=== PATIENT | male | born 1960 | race Caucasian/White ===

== ENCOUNTER 2019-06-06 11:00 | Inpatient (IN) | payer MEDICAID ==
[2019-06-04 13:49] LABS: BASOPHILS # (AUTO) 0.1 X10'3 (0-0.2); BASOPHILS % (AUTO) 0.8 % (0-1); EOSINOPHILS % (AUTO) 0.5 % (0-6); LYMPHOCYTES # (AUTO) 2.6 X10'3 (1.1-4.8); LYMPHOCYTES % (AUTO) 34.2 % (21-51); MEAN CORPUSCULAR HEMOGLOBIN 31.6 PG (27.0-31.0); MEAN CORPUSCULAR HGB CONC 34.7 g/dL (33.0-36.5); MEAN CORPUSCULAR VOLUME 91.2 FL (78-98); MEAN PLATELET VOLUME 6.8 FL (7.4-10.4); MONOCYTES # (AUTO) 0.5 X10'3 (0-0.9); MONOCYTES % (AUTO) 6.9 % (2-12); NEUTROPHILS # (AUTO) 4.3 X10'3 (1.8-7.7); NEUTROPHILS % (AUTO) 57.6 % (42-75); PRE OP HEMATOCRIT 46.3 % (42.0-52.0); PRE OP HEMOGLOBIN 16.1 g/dL (14.0-17.9); PRE OP PLATELET COUNT 400 X10'3 (140-440); RED BLOOD COUNT 5.08 X10'6 (4.70-6.10); RED CELL DISTRIBUTION WIDTH 13.7 % (11.5-14.5)
[2019-06-04 14:01] LABS: PRE OP PROTIME 10.7 SECONDS (9.0-12.0)
[2019-06-04 14:16] LABS: ALBUMIN 4.2 G/DL (3.4-5.0); ALBUMIN/GLOBULIN RATIO 1.1 (1.1-1.5); ALKALINE PHOSPHATASE 111 IU/L (46-116); BLOOD UREA NITROGEN 13 MG/DL (7-18); BUN/CREATININE RATIO 11.5 (5.4-32.0); CALCIUM 9.1 MG/DL (8.5-10.1); CHLORIDE 105 MMOL/L (99-107); CREATININE 1.13 MG/DL (0.60-1.10); PRE OP ALT 26 U/L (30-65); PRE OP ANION GAP 10 (8-16); PRE OP AST 14 U/L (10-37); PRE OP BILIRUB, TOTAL 1.2 MG/DL (0.0-1.0); PRE OP GLUCOSE 105 MG/DL (70-104); PRE OP SODIUM 141 MMOL/L (135-145); TOTAL CARBON DIOXIDE 26.4 MMOL/L (24-32); eGFR 66 ML/MIN
[~2019-06-06] VITALS: Ht 167.6 cm; Wt 83.2 kg
[~2019-06-06 11:00] MED LIST: AMLO2.5T2 PO; LISI40TA4 PO; NICO1PAT36 TOP; RIVA20TA PO
[2019-06-11] MEDS ORDERED: albuterol 2.5 MG/3 ML nebule NEB PRN (11:15)
[2019-06-12] VITALS (18 sets, daily range): BP systolic 113–154; BP diastolic 56–87
[2019-06-12] MEDS ORDERED: ringers solution, lacted 1,000 ML IV SCH ×3 (05:00→10:27)
[2019-06-12] MEDS ORDERED: cefazolin/dext.iso 2gm/50ml 50 ML IV ONE (05:30)
[2019-06-12] MEDS ORDERED: famotidine 20mg tablet PO ONE (05:30)
[2019-06-12] MEDS ORDERED: proCHLORperazine 10 MG/2 ml inj IV PRN ×2 (10:25→10:30)
[2019-06-12] MEDS ORDERED: ondansetron/PF 4mg/2ml inj IV PRN ×4 (10:25→17:05)
[2019-06-12] MEDS ORDERED: meperidine/PF 25mg/ml syringe IV PRN ×6 (10:25→10:30)
[2019-06-12] MEDS ORDERED: morphine 4 MG/ML inj SYRINge IV PRN ×7 (10:25→17:05)
[2019-06-12] MEDS ORDERED: LIDOcaine 1% (10mg/ml) 2ml vial ONE (10:40)
[2019-06-12] MEDS ORDERED: dexamethasone sod phosphate 10mg/ml inj ONE (12:22)
[2019-06-12] MEDS ORDERED: ondansetron/PF 4mg/2ml inj ONE (12:22)
[2019-06-12] MEDS ORDERED: glycopyrrolate 0.2mg/ml inj ONE (12:22)
[2019-06-12] MEDS ORDERED: pancuronium br 1mg/ml inj IV ONE (12:22)
[2019-06-12] MEDS ORDERED: sevoflurane 250ml liquid IH ONE (12:22)
[2019-06-12] MEDS ORDERED: neostigmine methylsulfate 1 MG/ML 10ml vial ONE (12:22)
[2019-06-12] MEDS ORDERED: MIDAZolam 5mg/5ml vial ONE (12:32)
[2019-06-12] MEDS ORDERED: fentaNYL /PF 50mcg/ml 5ml ampule ONE (12:46)
[2019-06-12] MEDS ORDERED: LIDOcaine 2% (20mg/ml) 5ml vial ONE (12:52)
[2019-06-12] MEDS ORDERED: propofol inj 20 ML IV ONE (12:52)
[2019-06-12] MEDS ORDERED: rocuronium 10mg/ml inj IV ONE (12:52)
[2019-06-12] MEDS ORDERED: BUPIVAcaine/PF 2.5 mg/ml (0.25%) 30ml vial ONE (13:49)
[2019-06-12] MEDS ORDERED: morphine/PF injection 8 MG, BUPIVAcaine 0.5% inj/PF 100 MG in normal saline 100ml IV so... EPI SCH (14:28)
--- NOTE | 2019-06-12 15:37 | NUR ---
Received from OR via BED, accompanied by Anesthesiologist DR ALMODOVAR and report given by Anesthesiologist. PT AWAKE, SLIGHTLY PAINFUL, RIGHT CHEST W/2 CHEST TUBES TO SUCTION, AIR LEAK NOTED, S/S DRAINAGE IN TUBING, INCISION/DRSG CDI. PT W/TRIPLE CVL TO RIGHT IJ, RIGHT RADIAL ARTERIAL LINE, ALLEN TO GRAVITY DRAINAGE W/DARK YELLOW URINE IN TUBING. ABG AND CXR COMPLETE, DR LISA REVIEWED BOTH. Addendum: 06/12/19 at 1640 by Rajani Salazar RN Amended: Links added. Addendum: 06/12/19 at 1646 by Rajani Salazar RN LATE ENTRY - PT HAS LEFT SUBCLAVIAN OCCLUSION, 30-45 POINTS DIFFERENCE IN ARTERIAL BP AND BP ON LEFT ARM, DR LISA/DR ALMODOVAR AWARE.
[2019-06-12] MEDS ORDERED: ceFAZolin 1GM/D5W- ADD-VANTAGE 50 ML IV ONE (15:55)
[2019-06-12 15:56] LABS: ABG BASE EXCESS -6.1 mmol/L (-2.0-3.0); ABG HCO3 18.4 mmol/L (22.0-26.0); ABG OXYGEN SATURATION 97.1 % (95-98); ABG PCO2 (T) 33.7 mmHg (35.0-45.0); ABG PH (T) 7.355 (7.350-7.450); ABG PO2 (T) 93.1 mmHg (83-108); FCOHb 0.8 % (0.5-1.5); FLOW 3 L/min; FO2Hb 96.3 % (94-100); TOTAL HEMOGLOBIN 14.3 G/dl (14.0-17.9)
[2019-06-12] MEDS ORDERED: ketorolac trometh. 30mg/ml inj. IV ONE (16:15)
[2019-06-12] MEDS ORDERED: acetaminophen 1,000mg/100ml IV 100 ML IV ONE (16:15)
[2019-06-12] MEDS ORDERED: metoclopramide 5 mg/ml inj IV PRN ×2 (16:30→17:05)
[2019-06-12] MEDS ORDERED: naloxone 0.4 mg/ml inj IV PRN ×2 (16:30→17:05)
[2019-06-12] MEDS ORDERED: albuterol 2.5 MG/3 ML nebule NEB PRN (16:30)
[2019-06-12] MEDS ORDERED: CADD PCA waste documentation MC PRN ×2 (16:30→17:05)
[2019-06-12] MEDS ORDERED: meperidine/PF 25mg/ml syringe ONE (16:43)
[2019-06-12] MEDS ORDERED: HYDROcodone/acetaminophen 10/325mg tab PO PRN ×2 (17:05)
--- NOTE | 2019-06-12 17:27 | NUR ---
Report called to receiving nurse. Transferred via BED, 1 BAG OF PERSONAL Belongings, GLASSES SENT W/PT TO ROOM 2045, RECEIVING RN AT BEDSIDE, BLL, CALL LIGHT GIVEN, SIDE RAILS UP X 2. Special Issues communicated to receiving nurse. YES. Addendum: 06/12/19 at 1742 by Rajani Salazar RN Amended: Links added.
--- NOTE | 2019-06-12 17:45 | NUR ---
Pt received from Recovery on bed. Pt is A&Ox4, BP is 140s systolic, as read on radial ART line. HR is 70s. O2 sat at 99% on 2L NC. CVP is 8. Pt has [address] from recovery. Urine output is good. Pt is complaining of some pain in right shoulder, currently on a Duomorph epidural drip. Sister came in and visited at bedside briefly before shift change.
--- NOTE | 2019-06-12 18:22 | NUR ---
Problems reprioritized. Patient report given, questions answered & plan of care reviewed with Tanner BUCKNER.
--- NOTE | 2019-06-12 18:27 | NUR ---
received report from Cyril BUCKNER no questions or concerns after assuming care
--- NOTE | 2019-06-12 18:51 | NUR ---
dr. Carvajal at bedside assessed fluctuation in chest tube verbalized everything looks good
[2019-06-12 19:00] LABS: BASOPHILS % (AUTO) 0.3 % (0-1); EOSINOPHILS % (AUTO) 0 % (0-6); HEMATOCRIT 44.3 % (42.0-52.0); HEMOGLOBIN 15.3 g/dl (14.0-17.9); LYMPHOCYTES # (AUTO) 0.7 X10'3 (1.1-4.8); LYMPHOCYTES % (AUTO) 3.9 % (21-51); MEAN CORPUSCULAR HEMOGLOBIN 31.5 PG (27.0-31.0); MEAN CORPUSCULAR HGB CONC 34.6 g/dL (33.0-36.5); MEAN CORPUSCULAR VOLUME 91.1 FL (78-98); MEAN PLATELET VOLUME 7.5 FL (7.4-10.4); MONOCYTES # (AUTO) 0.6 X10'3 (0-0.9); MONOCYTES % (AUTO) 3.1 % (2-12); NEUTROPHILS # (AUTO) 17.3 X10'3 (1.8-7.7); NEUTROPHILS % (AUTO) 92.7 % (42-75); PLATELET COUNT 330 X10'3 (140-440); RED BLOOD COUNT 4.86 X10'6 (4.70-6.10); RED CELL DISTRIBUTION WIDTH 13.8 % (11.5-14.5); WHITE BLOOD COUNT 18.7 X10'3 (4.5-11.0)
[2019-06-12] MEDS: potassium Cl 20mEq in D5-NS 1,000 ML IV SCH (19:06)
[2019-06-12 19:07] LABS: ANION GAP 7 (8-16); BLOOD UREA NITROGEN 11 MG/DL (7-18); CHLORIDE 106 MMOL/L (99-107); CREATININE 1.15 MG/DL (0.60-1.10); GLUCOSE 149 MG/DL (70-104); POTASSIUM 3.5 MMOL/L (3.5-5.1); SODIUM 141 MMOL/L (135-145); TOTAL CARBON DIOXIDE 27.7 MMOL/L (24-32)
[2019-06-12 19:08] LABS: ALBUMIN 3.7 G/DL (3.4-5.0); BUN/CREATININE RATIO 9.6 (5.4-32.0); CALCIUM 8.5 MG/DL (8.5-10.1); eGFR 65 ML/MIN
[2019-06-12] MEDS ORDERED: gabapentin 300mg capsule PO SCH (20:00)
[2019-06-12] MEDS: gabapentin 300mg capsule PO SCH (20:06)
--- NOTE | 2019-06-12 21:38 | NUR ---
patient in bed eyes closed covers on rr even un labored no observable s/s of acute stress at this time will continue to monitor
[2019-06-12] MEDS: ceFAZolin 1GM/D5W- ADD-VANTAGE 50 ML IV SCH (23:53)
[2019-06-13] VITALS (17 sets, daily range): BP systolic 102–146; BP diastolic 54–89
[2019-06-13] MEDS ORDERED: ceFAZolin inj. 1,000 MG in dextrose 5%-water 50ml 50 ML IV SCH ×4
--- NOTE | 2019-06-13 00:25 | NUR ---
patient currently in bed hob 45 degrees watching television states "no pain." rr even un labored no observable s/s of acute stress at this time
[2019-06-13 02:17] LABS: BASOPHILS % (AUTO) 0.2 % (0-1); EOSINOPHILS % (AUTO) 0 % (0-6); HEMATOCRIT 41.4 % (42.0-52.0); HEMOGLOBIN 14.1 g/dl (14.0-17.9); LYMPHOCYTES # (AUTO) 0.8 X10'3 (1.1-4.8); LYMPHOCYTES % (AUTO) 4.8 % (21-51); MEAN CORPUSCULAR HEMOGLOBIN 31.4 PG (27.0-31.0); MEAN CORPUSCULAR HGB CONC 34.2 g/dL (33.0-36.5); MEAN CORPUSCULAR VOLUME 91.9 FL (78-98); MEAN PLATELET VOLUME 7.4 FL (7.4-10.4); MONOCYTES # (AUTO) 0.8 X10'3 (0-0.9); MONOCYTES % (AUTO) 4.6 % (2-12); NEUTROPHILS # (AUTO) 14.9 X10'3 (1.8-7.7); NEUTROPHILS % (AUTO) 90.4 % (42-75); PLATELET COUNT 309 X10'3 (140-440); RED CELL DISTRIBUTION WIDTH 13.6 % (11.5-14.5); WHITE BLOOD COUNT 16.5 X10'3 (4.5-11.0)
--- NOTE | 2019-06-13 02:37 | NUR ---
patient in bed able to turn and reposition independently, rr even un labored no observable s/s of acute stress at this time
[2019-06-13] MEDS: morphine/PF injection 8 MG in normal saline 100ml IV soln 100 ML EPI SCH ×2 (03:45→15:13)
--- NOTE | 2019-06-13 04:11 | NUR ---
when changing out the DURAmorph for patient there was no hard copy for waste documentation with the medication or in patients chart,JAVID Pereira aware, 2nd bag has sign sheet for waste that i have left on medication bag with a rubber band
--- NOTE | 2019-06-13 04:17 | NUR ---
spoke with Erin the Pharmacist will be bringing up hard copy for waste of the 1st bag that was started in the or
--- NOTE | 2019-06-13 04:31 | NUR ---
patient in bed covers on eyes closed rr even un labored no observable s/s of acute stress at this time will continue to monitor
--- NOTE | 2019-06-13 06:36 | NUR ---
SBAR to Ernie BUCKNER no questions or concerns after assuming care
[2019-06-13] MEDS: potassium Cl 20mEq in D5-NS 1,000 ML IV SCH (06:41)
[2019-06-13] MEDS: ceFAZolin 1GM/D5W- ADD-VANTAGE 50 ML IV SCH (08:40)
[2019-06-13] MEDS: gabapentin 300mg capsule PO SCH ×2 (08:40→20:21)
[2019-06-13] MEDS: nicotine 21mg patch - 24 hr TD SCH (10:08)
[2019-06-13] MEDS: lisinopril 20mg tablet PO SCH (10:08)
[2019-06-13] MEDS: amLODIPine 5mg tablet PO SCH (10:09)
[2019-06-13] MEDS ORDERED: metoclopramide 5 mg/ml inj IV ONE (10:25)
[2019-06-13] MEDS: rivaroxaban 20mg tablet PO SCH (10:42)
--- NOTE | 2019-06-13 16:00 | NUR ---
Patient in room [facility]. I have received report from PATRICIA BUCKNER and had the opportunity to ask questions and assume patient care.
--- NOTE | 2019-06-13 16:30 | NUR ---
PATIENT INTRODUCED TO ROOM AND STAFF, PATIENT VITALS TAKE AT THIS TIME, ALL WNL. PATIENT HAD GOOD BREATH SOUNDS, PATIENT HEART SOUNDS S1S2. PATIENT HAD NO COMPLAINT OF PAIN AT THIS TIME AND TRANSFERED FROM WHEELCHAIR TO BED VIA STAND BY ASSIST. EPIDURAL SITE SECURE AND TUBING SECURED.
--- NOTE | 2019-06-13 16:44 | NUR ---
pt transferred to [facility] with belongings via wheelchair in stable condition.
--- NOTE | 2019-06-13 18:15 | NUR ---
Patient in room [facility]. I have received report from WADE BUCKNER and had the opportunity to ask questions and assume patient care. Addendum: 06/13/19 at 2323 by Radha Mcconnell RN Amended: Links added.
--- NOTE | 2019-06-13 18:30 | NUR ---
Problems reprioritized. Patient report given, questions answered & plan of care reviewed with DOMENICA BUCKNER.
--- NOTE | 2019-06-13 20:00 | NUR ---
pt took hs meds and repositioned to comfort and appiah care done as well as new cath strap attached to his thigh noted scant amount rbc's noted in the urine.
[2019-06-13] MEDS: magnesium oxide 400mg tablet PO SCH (20:21)
--- NOTE | 2019-06-13 22:00 | NUR ---
pt without complaints at this time sat monitor in place with tele and epidural taped in place and intact to left shoulder and noted to spine.
[2019-06-14] VITALS: BP 123/72
--- NOTE | 2019-06-14 00:35 | NUR ---
pt c/o being cold room teperature was down to 60's so warm blanket given to the pt. duramorph infusing cath intact and taped to left shoulder.
--- NOTE | 2019-06-14 02:35 | NUR ---
pt awoke briefly no complaints or s&s of distress at this time.
--- NOTE | 2019-06-14 04:00 | NUR ---
epidural in place pt alert. c/o slight itching at tape area noted epidural in place and infusing. chest tubes with serosanginous drainage. no clots noted. appiah draining lt dora urine. chest tube dressing intact no new drainage. chest tubes remain to low suction.
[2019-06-14] MEDS: morphine sulfate /PF inj. 8 MG in normal saline 100ml IV soln 84 ML EPI SCH ×2 (05:20→19:54)
--- NOTE | 2019-06-14 05:20 | NUR ---
lucina hung with 2 people present and previous bag infused and new one hung. noted nothing to waste.
--- NOTE | 2019-06-14 06:09 | NUR ---
Problems reprioritized. Patient report given, questions answered & plan of care reviewed with Salazar Jarrett. Addendum: 06/14/19 at 0610 by Radha Mcconnell RN Amended: Links added.
[2019-06-14 06:24] LABS: ALBUMIN 2.8 G/DL (3.4-5.0); ANION GAP 6 (8-16); BLOOD UREA NITROGEN 10 MG/DL (7-18); BUN/CREATININE RATIO 11.5 (5.4-32.0); CALCIUM 8.1 MG/DL (8.5-10.1); CHLORIDE 100 MMOL/L (99-107); CREATININE 0.87 MG/DL (0.60-1.10); GLUCOSE 89 MG/DL (70-104); POTASSIUM 3.8 MMOL/L (3.5-5.1); SODIUM 132 MMOL/L (135-145); TOTAL CARBON DIOXIDE 26.4 MMOL/L (24-32); eGFR 90 ML/MIN
--- NOTE | 2019-06-14 06:30 | NUR ---
Patient in room [facility]. I have received report from DOMENICA BUCKNER and had the opportunity to ask questions and assume patient care.
[2019-06-14 07:12] VITALS: BP 115/64
[2019-06-14 07:15] VITALS: BP 144/83
[2019-06-14] MEDS: rivaroxaban 20mg tablet PO SCH (07:45)
[2019-06-14] MEDS: magnesium oxide 400mg tablet PO SCH ×2 (07:45→19:38)
[2019-06-14] MEDS: lisinopril 20mg tablet PO SCH (07:46)
[2019-06-14] MEDS: gabapentin 300mg capsule PO SCH (07:47)
[2019-06-14] MEDS: amLODIPine 5mg tablet PO SCH (07:47)
[2019-06-14] MEDS: nicotine 21mg patch - 24 hr TD SCH (07:51)
[2019-06-14 11:00] VITALS: BP 120/65
[2019-06-14] MEDS ORDERED: diphenhydrAMINE 50 mg/ml inj IV PRN (13:05)
[2019-06-14] MEDS: naloxone 2mg/2ml inj 1.6 MG in normal saline 500ml IV soln 500 ML IV PRN (17:12)
--- NOTE | 2019-06-14 18:30 | NUR ---
Problems reprioritized. Patient report given, questions answered & plan of care reviewed with DOMENICA BUCKNER.
--- NOTE | 2019-06-14 18:43 | NUR ---
Patient in room [facility]. I have received report from Salazar Jarrett and had the opportunity to ask questions and assume patient care. Addendum: 06/14/19 at 1843 by Radha Mcconnell RN Amended: Links added.
[2019-06-14 19:30] VITALS: BP 135/73
[2019-06-14] MEDS: magnesium hydroxide 30ml (MOM) UD suspension PO SCH (19:38)
--- NOTE | 2019-06-14 19:50 | NUR ---
pt c/o iching and medicated with iv benadryl for this. chest tube draining serosanginous drainage right side of chest from 2 chest tubes y sited in. appiah in place draining clear yellow urine. back skin care done and noted epidural taped in place to left shoulder. new duramorph bag hung other bag had completely infused in. right ij remains in place dressing d/i. appiah cath care done. and narcan drip infusing denies nausea. right side chest dressing dry.
--- NOTE | 2019-06-14 21:22 | NUR ---
resting eyes closed without changes.
--- NOTE | 2019-06-14 21:57 | NUR ---
pt snoring no s&s of distress at this time. batteries to tele changed
--- NOTE | 2019-06-15 | NUR ---
resting without changes.
[2019-06-15 00:11] VITALS: BP 95/60
--- NOTE | 2019-06-15 02:00 | NUR ---
pt awaoke spilled water and area cleaned then chest tube container remains to water seal. 375 out and new container set up other is almost full. dressing to chest tube site saturated and removed cleaned and new 4x4's applied and tegaderm dressing.
--- NOTE | 2019-06-15 02:45 | NUR ---
in case needs am labs lorna then from 3way right IJ and then site cleaned per protocol all surures removed cleaned chor swabs and then 4x4 dressing tegaderm dressing with pressure held 10minuted and then more 4x4's and microfoam tape pressure dressing applied over it. noted all of central line dc'd cath intact and no drainage from the site. pt tolerated the procedure well. pt stated wise needed trimming catching in the tape and done for him. pt without drainage at site pressure dressing in place. pt tolerated it well.
[2019-06-15 03:30] VITALS: BP 123/74
[2019-06-15] MEDS: morphine sulfate /PF inj. 8 MG in normal saline 100ml IV soln 84 ML EPI SCH (03:54)
--- NOTE | 2019-06-15 04:45 | NUR ---
resting eyes closed without changes.
--- NOTE | 2019-06-15 06:09 | NUR ---
Problems reprioritized. Patient report given, questions answered & plan of care reviewed with Salazar Jarrett. Addendum: 06/15/19 at 0610 by Radha Mcconnell RN Amended: Links added.
--- NOTE | 2019-06-15 06:30 | NUR ---
Patient in room [facility]. I have received report from luis BUCKNER and had the opportunity to ask questions and assume patient care.
[2019-06-15 07:35] VITALS: BP 116/66
[2019-06-15] MEDS: magnesium oxide 400mg tablet PO SCH ×2 (07:54→21:03)
[2019-06-15] MEDS: amLODIPine 5mg tablet PO SCH (07:54)
[2019-06-15] MEDS: lisinopril 20mg tablet PO SCH (07:55)
[2019-06-15] MEDS: magnesium hydroxide 30ml (MOM) UD suspension PO SCH ×2 (07:56→21:03)
[2019-06-15] MEDS: nicotine 21mg patch - 24 hr TD SCH (07:56)
[2019-06-15] MEDS: morphine/PF injection 8 MG in normal saline 100ml IV soln 92 ML EPI SCH ×2 (10:17→22:36)
[2019-06-15 11:00] VITALS: BP 116/66
[2019-06-15] MEDS: naloxone 2mg/2ml inj 1.6 MG in normal saline 500ml IV soln 500 ML IV PRN (14:03)
[2019-06-15 18:00] VITALS: BP 129/69
--- NOTE | 2019-06-15 18:30 | NUR ---
Problems reprioritized. Patient report given, questions answered & plan of care reviewed with Radha BUCKNER.
--- NOTE | 2019-06-15 18:42 | NUR ---
Patient in room [facility]. I have received report from WADE BUCKNER and had the opportunity to ask questions and assume patient care. Addendum: 06/15/19 at 1843 by Radha Mcconnell RN Amended: Links added.
--- NOTE | 2019-06-15 19:00 | NUR ---
CHEST TUBES X2 INTACT TO WATER SEAL. NOTED LUNGS COURSE USING iS UNIT AND FLUTTER VALVE EVEN AFTER COUGHING NOTED LUNG SOUNDS LEFT LUNG COURSE THROUGHOUT MARK ON INSPIRATION AND NOTED RUB TO RIGHT LUNG. X2 CHEST TUBES INTACT. DRESSING TO CHEST TUBES DRY AND INTACT AND NO AIR LEAK NOTED WITH PT COUGHING. RIGHT SIDE NECK WHERE IJ WAS INSERTED DRESSING CAME OFF AND REDRESSED WITH 2X2 TELFA PAD AND TEGADERM. NO REDNESS PT C/O TENDERNESS AT THE SITE. EPIDURAL TAPED IN PLACE TO SPINE DRESSING REINFORCED WITH TEGADERM AND INTACT TAPED TO LEFT SHOULDER. PT DENIES PAIN.
--- NOTE | 2019-06-15 20:45 | NUR ---
AFTER THIS PT STATED HE WANTED TO GET UP TO BEDSIDE COMMODE TO SEE IF HE COULD FULLY EMPTY BLADDER BEFORE CALLING mD TO CATH HIM. Addendum: 06/15/19 at 2243 by Radha Mcconnell RN Amended: Links added.
--- NOTE | 2019-06-15 21:50 | NUR ---
august rN pRACTIONER OUTREACH ANALYST FOR DR WALLS WHO HAD SEEN PT IN THE UNIT POST RLLOBE LOBECTOMY AND THORACOTOMY. AWARE PT HAS AN EPIDURAL CATH IN. ODER FOR A STRAIGHT CATH. Addendum: 06/15/19 at 2247 by Radha Mcconnell RN Amended: Links added.
--- NOTE | 2019-06-15 22:47 | NUR ---
VIA STERILE PROCEDURE PT STRAIGHT CATHED AFTER VOID 220CC CL YELLOW URINE AND BLADDER SCANNED 756CC IN THERE AND OBTAINED 1075CC CLEAR YELLOW URINE OUT.STREAM STOPPED AND RESTARTED.
[2019-06-16] VITALS: BP 117/66
--- NOTE | 2019-06-16 00:20 | NUR ---
PT TELE RESET. PT RESTING EYES CLOSED WITHOUT CHANGES.
--- NOTE | 2019-06-16 01:47 | NUR ---
Student documentation: I have reviewed and agree with all interventions, assessments performed and documented by Ofelia Martel [facility] [employer] student. Addendum: 06/16/19 at 0148 by Radha Mcconnell RN Amended: Links added.
--- NOTE | 2019-06-16 02:15 | NUR ---
awoke warm blanket given per request and had pt using the flutter valve at this time.
--- NOTE | 2019-06-16 02:57 | NUR ---
pt up on bedside commode passing gas and up to void.
--- NOTE | 2019-06-16 03:12 | NUR ---
pt did not void just passed gas. bladder scanned 419cc in the bladder and pt refused straight cath at this time. talked with pt comprise made that if no urine out by 0530 and has over 400cc we will need to straight cath him for his safety.
--- NOTE | 2019-06-16 05:25 | NUR ---
bladder scanned 503 and then straight cath done via sterile procedure by Rn student Ofelia. 525cc out clear yellow urine.
--- NOTE | 2019-06-16 05:47 | NUR ---
chest tube in place to water seal and 140cc serosang drainage from right lower lobe chest tubes. left shoulder with epidural cath still taped to the shoulder with filter in place and taped to the spine.
--- NOTE | 2019-06-16 06:27 | NUR ---
Problems reprioritized. Patient report given, questions answered & plan of care reviewed with Shanika Jarrett. Addendum: 06/16/19 at 0628 by Radha Mcconnell RN Amended: Links added.
--- NOTE | 2019-06-16 06:34 | NUR ---
Patient in room [facility]. I have received report from DUDLEY METZGER and had the opportunity to ask questions and assume patient care.
[2019-06-16 08:00] VITALS: BP 122/71
[2019-06-16] MEDS: amLODIPine 5mg tablet PO SCH (08:49)
[2019-06-16] MEDS: magnesium oxide 400mg tablet PO SCH ×2 (08:49→19:47)
[2019-06-16] MEDS: magnesium hydroxide 30ml (MOM) UD suspension PO SCH ×2 (08:49→19:47)
[2019-06-16] MEDS: lisinopril 20mg tablet PO SCH (08:52)
[2019-06-16] MEDS: nicotine 21mg patch - 24 hr TD SCH (08:56)
[2019-06-16] MEDS: morphine/PF injection 8 MG in normal saline 100ml IV soln 92 ML EPI SCH ×3 (10:49→21:16)
[2019-06-16] MEDS: naloxone 2mg/2ml inj 1.6 MG in normal saline 500ml IV soln 500 ML IV PRN (11:25)
[2019-06-16 12:10] VITALS: BP 117/64
--- NOTE | 2019-06-16 12:54 | NUR ---
Patient in room [facility]. I have received report from Glenna and had the opportunity to ask questions and assume patient care.
--- NOTE | 2019-06-16 13:32 | NUR ---
Pt has not kimberly able to urinate since his last straight cath at 0600 06/16. Bladder scanned showed [address] Roberts and he ordered another straight cath. 1330 thre was 700ML of urine removed from then straight cath. Dr. Roberts ordered to drop down morphine drip to 1mg an hour to help with fluid retention. Adjusted from 8mg to 7mg and will keep adjusting.
--- NOTE | 2019-06-16 13:45 | NUR ---
Duromorp Epidural rate changed to 7ml/hr.
--- NOTE | 2019-06-16 14:45 | NUR ---
Duromorph rate decreased to 6ml/ hr
--- NOTE | 2019-06-16 15:45 | NUR ---
Duromorph rate decreased to 5ml/ hr
--- NOTE | 2019-06-16 16:12 | NUR ---
Patient unable to void. Bladder scan shows 700ml of urine in bladder. Dr. Barton notified by relief charge nurse, gerson, and he ordered to have patient be straight cath. Patient tolerated straight cath well, 700ml of light dora urine drained. Dr. Barton also ordered to wean patient off Duomorph epidural 1ml/hr. Addendum: 06/16/19 at 1853 by Shanika Soriano RN Incorrect time at 1612. Correct time 1345.
--- NOTE | 2019-06-16 16:45 | NUR ---
Duromorph rate decreased to 4ml/ hr
[2019-06-16 17:25] LABS: ALBUMIN 2.7 G/DL (3.4-5.0); ANION GAP 7 (8-16); BLOOD UREA NITROGEN 9 MG/DL (7-18); BUN/CREATININE RATIO 9.9 (5.4-32.0); CALCIUM 8.4 MG/DL (8.5-10.1); CHLORIDE 105 MMOL/L (99-107); CREATININE 0.91 MG/DL (0.60-1.10); GLUCOSE 99 MG/DL (70-104); POTASSIUM 4.2 MMOL/L (3.5-5.1); SODIUM 142 MMOL/L (135-145); TOTAL CARBON DIOXIDE 30.2 MMOL/L (24-32); eGFR 85 ML/MIN
[2019-06-16] MEDS: tamsulosin 0.4mg capsule PO SCH ×2 (18:15→21:15)
--- NOTE | 2019-06-16 18:20 | NUR ---
Received report from DUDLEY Voss with [facility] Student Nurse. Patient is awake and alert on room air, in no apparent distress. Call light and items of frequent use within reach. Will continue to monitor.
--- NOTE | 2019-06-16 18:45 | NUR ---
Problems reprioritized. Patient report given, questions answered & plan of care reviewed with MONICA.
--- NOTE | 2019-06-16 18:45 | NUR ---
Changed rate of Duramorph drip to 3ml/hr with DUDLEY Voss. Will continue to monitor.
--- NOTE | 2019-06-16 18:45 | NUR ---
Duromorph epidural rate changed to 3ml/hr.
--- NOTE | 2019-06-16 19:17 | NUR ---
Student documentation: I have reviewed and agree with all interventions, assessments performed and documented by SN Isaías. Student Medication Administration: For this medication-pass time frame, all medication were reviewed, dispensed, administered and documented per hospital policy by SN Isaías.
[2019-06-16 20:00] VITALS: BP 126/79
--- NOTE | 2019-06-16 20:00 | NUR ---
Changed Duramorph infusion rate to 2ml/hr with DUDLEY Melendrez. Will continue to monitor.
--- NOTE | 2019-06-16 21:10 | NUR ---
Changed Duramorph infusion rate to 2ml/hr with RN. Taylor Will continue to monitor. Addendum: 06/16/19 at 2113 by Olimpia Lindsey RN Incorrect rate chartedChanged Duramorph infusion rate to 1ml/hr with RN. Taylor Will continue to monitor.
--- NOTE | 2019-06-16 22:25 | NUR ---
Called Dr. Hastings regarding epidural catheter removal. Unable to reach. Left a message. Awaiting call back.
--- NOTE | 2019-06-16 23:00 | NUR ---
MD Venkata called back and confirmed that the Duramorph drip on epidural catheter and the Narcan drip should be discontinued at the same time.
[2019-06-16 23:13] LABS: CLARITY,URINE SLIGHTLY CLOUDY (Clear); COLOR,URINE YELLOW (Yellow); GLUCOSE, URINE NEGATIVE (Neg); KETONES,URINE NEGATIVE (Neg); LEUKOCYTE ESTERASE ,URINE NEGATIVE (Neg); NITRITES, URINE NEGATIVE (Neg); OCCULT BLOOD,URINE MODERATE (Neg); PH,URINE 7.5 (4.8-8.0); PROTEIN,URINE NEGATIVE (Neg); UROBILINOGEN,URINE 0.2 E.U/dL (0.2-1.0)
--- NOTE | 2019-06-16 23:15 | NUR ---
Removed epidural catheter from patient with DUDLEY Vazquez RN and DUDLEY Ng at bedside. Patient tolerated procedure well. Insertion site appears slightly red, so catheter tip was cut off and sent to lab. Will continue to assess and monitor patient.
[2019-06-16 23:19] LABS: UA COLLECTION TYPE CLN CATCH MIDSTREAM
--- NOTE | 2019-06-16 23:20 | NUR ---
Total of 49mL of Duramorph 1mg/1ml 10ml in 100mL of NS was wasted in Rx destroyer; witnessed by DUDLEY Melendrez.
[2019-06-16 23:22] LABS: AMORPHOUS PHOSPHATES 3+; BACTERIA,URINE NONE SEEN /HPF (Neg); SQUAMOUS EPITHELIAL CELL,UR FEW /LPF (FEW); WBC,URINE NONE SEEN /HPF (0-4)
[2019-06-17] VITALS: BP 120/56
--- NOTE | 2019-06-17 06:22 | NUR ---
Problems reprioritized. Patient report given, questions answered & plan of care reviewed with DUDLEY Euceda.
--- NOTE | 2019-06-17 06:43 | NUR ---
Patient in room [facility]. I have received report from Olimpia BUCKNER and had the opportunity to ask questions and assume patient care.
[2019-06-17 07:00] VITALS: BP 114/67
[2019-06-17] MEDS: magnesium hydroxide 30ml (MOM) UD suspension PO SCH ×2 (07:17→20:00)
[2019-06-17] MEDS: nicotine 21mg patch - 24 hr TD SCH (07:19)
[2019-06-17] MEDS: HYDROcodone/acetaminophen 10/325mg tab PO PRN (07:20)
[2019-06-17] MEDS: magnesium oxide 400mg tablet PO SCH ×2 (07:21→20:36)
[2019-06-17] MEDS: amLODIPine 5mg tablet PO SCH (07:21)
[2019-06-17] MEDS: lisinopril 20mg tablet PO SCH (07:21)
--- NOTE | 2019-06-17 10:12 | NUR ---
Dr. Leija (anesthesiologist) made rounds. Received order to d/c the Narcan and Duramorph drip that were still active Also, he gave me order to start patient on Xarelto.
[2019-06-17] MEDS: rivaroxaban 20mg tablet PO SCH (10:39)
[2019-06-17] MEDS: morphine 4 MG/ML inj SYRINge IV PRN (14:11)
--- NOTE | 2019-06-17 16:11 | NUR ---
Initial: Pt admit s/p thoracotomy and lower lobectomy r/t lung CA. Pt no PO documentation past 4 days since admit. Pt seen by RD for written/verbal high protein ed w/ RD contact information provided. Pt reports following "keto" diet at home to "starve" the CA. RD encouraged consumption of wide variety of nutrient-dense carbohydrate foods in order to prevent muscle catabolism and optimize outcomes. Pt says makes elderberry jam which is "anti-bacterial and anti-viral." Pt endorses good appetite and agrees to ensure pudding and cranberry juice TIDWM; also dislikes orange juice, lemonade, fish, oatmeal, and cream of wheat. Dietary notified. CT 1000ml output past 24 hours noted. LBM 06/16. Will continue to monitor for additional protein needs post-op. Rec: 1. continue heart healthy diet per MD 2. ensure pudding TIDWM 3. wt per rx Addendum: 06/17/19 at [address] Amended: Links added.
--- NOTE | 2019-06-17 18:50 | NUR ---
Patient in room [facility]. I have received report from DUDLEY Euceda and had the opportunity to ask questions and assume patient care.
--- NOTE | 2019-06-17 18:53 | NUR ---
Problems reprioritized. Patient report given, questions answered & plan of care reviewed with Philomena BUCKNER.
[2019-06-17 20:00] VITALS: BP 120/63
[2019-06-17] MEDS: tamsulosin 0.4mg capsule PO SCH (20:37)
[2019-06-18] VITALS: BP 126/58
[2019-06-18] MEDS: morphine 4 MG/ML inj SYRINge IV PRN ×4 (00:29→23:14)
--- NOTE | 2019-06-18 06:49 | NUR ---
Problems reprioritized. Patient report given, questions answered & plan of care reviewed with DUDLEY Zimmerman.
[2019-06-18 07:00] VITALS: BP 126/72
[2019-06-18] MEDS: magnesium hydroxide 30ml (MOM) UD suspension PO SCH ×2 (08:00→20:00)
[2019-06-18] MEDS: nicotine 21mg patch - 24 hr TD SCH (09:36)
[2019-06-18] MEDS: rivaroxaban 20mg tablet PO SCH (09:37)
[2019-06-18] MEDS: amLODIPine 5mg tablet PO SCH (09:37)
[2019-06-18] MEDS: magnesium oxide 400mg tablet PO SCH ×2 (09:37→21:07)
[2019-06-18] MEDS: lisinopril 20mg tablet PO SCH (09:38)
[2019-06-18 11:00] VITALS: BP 147/95
--- NOTE | 2019-06-18 17:55 | NUR ---
RECEIVED REPORT FROM JENNIFER BUCKNER
--- NOTE | 2019-06-18 18:16 | NUR ---
GAVE REPORT TO DANITZA BUCKNER
--- NOTE | 2019-06-18 18:37 | NUR ---
CHECKED STUDENT CHARTING
[2019-06-18 20:00] VITALS: BP 119/67
[2019-06-18] MEDS: tamsulosin 0.4mg capsule PO SCH (21:00)
--- NOTE | 2019-06-18 21:09 | NUR ---
Patient refused Flomax and MOM tonight. States he is peeing fine and doesn't want to take any medications if he doesnt need it. Nurse explained to patient why he is taking it, he states he understands and said it was cause the epidural that was causing him not to pee. Also states his Bowels are going and doesnt want the MOM. Patient compliant with taking the mag OX.
[2019-06-19] VITALS: BP 121/68
[2019-06-19] MEDS: HYDROcodone/acetaminophen 10/325mg tab PO PRN ×4 (03:29→23:32)
[2019-06-19 06:30] VITALS: BP 120/65
--- NOTE | 2019-06-19 06:51 | NUR ---
Patient in room [facility]. I have received report from DUDLEY Evans and had the opportunity to ask questions and assume patient care.
[2019-06-19] MEDS: magnesium oxide 400mg tablet PO SCH ×2 (07:42→19:40)
[2019-06-19] MEDS: rivaroxaban 20mg tablet PO SCH (07:42)
[2019-06-19] MEDS: nicotine 21mg patch - 24 hr TD SCH (07:43)
[2019-06-19] MEDS: magnesium hydroxide 30ml (MOM) UD suspension PO SCH ×2 (08:00→19:40)
[2019-06-19] MEDS: lisinopril 20mg tablet PO SCH (08:00)
[2019-06-19] MEDS: amLODIPine 5mg tablet PO SCH (08:00)
[2019-06-19 12:24] VITALS: BP 131/75
--- NOTE | 2019-06-19 16:30 | NUR ---
Student documentation: I have reviewed all interventions, assessments performed and documented by Arabella GOMEZ
--- NOTE | 2019-06-19 18:05 | NUR ---
Problems reprioritized. Patient report given, questions answered & plan of care reviewed with DUDLEY Evans.
[2019-06-19] MEDS: tamsulosin 0.4mg capsule PO SCH (19:41)
[2019-06-19 20:00] VITALS: BP 115/68
[2019-06-20] VITALS: BP 140/75
[2019-06-20] MEDS: HYDROcodone/acetaminophen 10/325mg tab PO PRN ×2 (05:53→19:03)
[2019-06-20 07:00] VITALS: BP 125/71
[2019-06-20] MEDS: magnesium oxide 400mg tablet PO SCH ×2 (07:13→20:22)
[2019-06-20] MEDS: amLODIPine 5mg tablet PO SCH (07:13)
[2019-06-20] MEDS: lisinopril 20mg tablet PO SCH (07:13)
[2019-06-20] MEDS: rivaroxaban 20mg tablet PO SCH (07:13)
[2019-06-20] MEDS: nicotine 21mg patch - 24 hr TD SCH (07:14)
[2019-06-20] MEDS: magnesium hydroxide 30ml (MOM) UD suspension PO SCH ×2 (07:15→20:22)
--- NOTE | 2019-06-20 08:51 | NUR ---
Dr. Roberts in to see patient. Dr. Roberts dc'd patient's chest tube. Patient tolerated well and denies SOB. Patient does c/o "stingy" to where chest tube site was but refuses pain med at this time. Will continue to monitor. Addendum: 06/20/19 at 1842 by Shanika Soriano RN "stinging" not "stingy"
[2019-06-20] MEDS: ceFAZolin 1GM/D5W- ADD-VANTAGE 50 ML IV SCH ×2 (09:15→15:43)
[2019-06-20 10:02] LABS: BASOPHILS # (AUTO) 0.1 X10'3 (0-0.2); BASOPHILS % (AUTO) 1.1 % (0-1); EOSINOPHILS # (AUTO) 0.3 X10'3 (0-0.9); EOSINOPHILS % (AUTO) 2.1 % (0-6); HEMOGLOBIN 14.7 g/dl (14.0-17.9); LYMPHOCYTES # (AUTO) 2.2 X10'3 (1.1-4.8); LYMPHOCYTES % (AUTO) 17.2 % (21-51); MEAN CORPUSCULAR HEMOGLOBIN 31.8 PG (27.0-31.0); MEAN CORPUSCULAR HGB CONC 34.9 g/dL (33.0-36.5); MEAN PLATELET VOLUME 6.4 FL (7.4-10.4); MONOCYTES # (AUTO) 1.2 X10'3 (0-0.9); MONOCYTES % (AUTO) 9.3 % (2-12); NEUTROPHILS # (AUTO) 8.8 X10'3 (1.8-7.7); NEUTROPHILS % (AUTO) 70.3 % (42-75); PLATELET COUNT 413 X10'3 (140-440); RED BLOOD COUNT 4.61 X10'6 (4.70-6.10); RED CELL DISTRIBUTION WIDTH 13.4 % (11.5-14.5); WHITE BLOOD COUNT 12.5 X10'3 (4.5-11.0)
[2019-06-20 11:17] VITALS: BP 112/69
--- NOTE | 2019-06-20 12:17 | NUR ---
Reassessment: Pt doing well post-op per MD notes. Documented with [address] last 24 hours per I&O. Pt documented with 75-100% PO intake on heart healthy diet likely meeting nutrient needs. Wt stable. LBM 06/18, pt receiving routine MoM BID however documented to be refusing it at times. Will continue to follow. Rec: 1. continue heart healthy diet 2. ensure pudding TIDWM 3. wt per rx Addendum: 06/20/19 at [address] Amended: Links added.
[2019-06-20 18:00] VITALS: BP 118/68
--- NOTE | 2019-06-20 18:43 | NUR ---
Problems reprioritized. Patient report given, questions answered & plan of care reviewed with DUDLEY Santiago.
--- NOTE | 2019-06-20 18:45 | NUR ---
Patient in room [facility]. I have received report from BRUCE BUCKNER and had the opportunity to ask questions and assume patient care.
[2019-06-20] MEDS: lactobacillus rhamnosus 10,000 MMU CELLS/CAPSULE PO SCH (20:21)
[2019-06-20] MEDS: tamsulosin 0.4mg capsule PO SCH (20:25)
[2019-06-21] VITALS: BP 115/65
[2019-06-21] MEDS: ceFAZolin 1GM/D5W- ADD-VANTAGE 50 ML IV SCH ×2 (00:33→09:33)
[2019-06-21] MEDS: HYDROcodone/acetaminophen 10/325mg tab PO PRN ×4 (04:21→23:17)
--- NOTE | 2019-06-21 06:30 | NUR ---
Problems reprioritized. Patient report given, questions answered & plan of care reviewed with RUDY BUCKNER.
--- NOTE | 2019-06-21 06:59 | NUR ---
Patient in room [facility]. I have received report from Mely Boone RN and had the opportunity to ask questions and assume patient care.
[2019-06-21] MEDS: magnesium hydroxide 30ml (MOM) UD suspension PO SCH ×2 (08:00→19:38)
[2019-06-21] MEDS: nicotine 21mg patch - 24 hr TD SCH (09:31)
[2019-06-21] MEDS: amLODIPine 5mg tablet PO SCH (09:31)
[2019-06-21] MEDS: lactobacillus rhamnosus 10,000 MMU CELLS/CAPSULE PO SCH ×2 (09:31→19:36)
[2019-06-21] MEDS: lisinopril 20mg tablet PO SCH (09:32)
[2019-06-21] MEDS: rivaroxaban 20mg tablet PO SCH (09:32)
[2019-06-21] MEDS: magnesium oxide 400mg tablet PO SCH ×2 (09:33→19:36)
[2019-06-21 09:45] VITALS: BP 110/66
[2019-06-21 11:00] VITALS: BP 115/62
[2019-06-21 18:00] VITALS: BP 111/54
--- NOTE | 2019-06-21 18:37 | NUR ---
Problems reprioritized. Patient report given, questions answered & plan of care reviewed with DOUG CAMACHO RN.
--- NOTE | 2019-06-21 18:40 | NUR ---
Patient in room [facility]. I have received report from RUDY BUCKNER and had the opportunity to ask questions and assume patient care.
[2019-06-21] MEDS: tamsulosin 0.4mg capsule PO SCH (19:38)
[2019-06-22] VITALS: BP 118/63
--- NOTE | 2019-06-22 06:21 | NUR ---
Problems reprioritized. Patient report given, questions answered & plan of care reviewed with RUDY BUCKNER.
--- NOTE | 2019-06-22 06:52 | NUR ---
Patient in room [facility]. I have received report from Mely Boone RN and had the opportunity to ask questions and assume patient care.
[2019-06-22 06:57] VITALS: BP 110/67
[2019-06-22] MEDS: lactobacillus rhamnosus 10,000 MMU CELLS/CAPSULE PO SCH (07:19)
[2019-06-22] MEDS: rivaroxaban 20mg tablet PO SCH (07:19)
[2019-06-22 07:20] VITALS: BP_SYST 110
[2019-06-22] MEDS: magnesium oxide 400mg tablet PO SCH (07:20)
[2019-06-22] MEDS: lisinopril 20mg tablet PO SCH (07:20)
[2019-06-22] MEDS: amLODIPine 5mg tablet PO SCH (07:21)
[2019-06-22] MEDS: nicotine 21mg patch - 24 hr TD SCH (07:21)
[2019-06-22] MEDS: HYDROcodone/acetaminophen 10/325mg tab PO PRN (07:22)
[2019-06-22] MEDS: magnesium hydroxide 30ml (MOM) UD suspension PO SCH (07:23)
--- NOTE | 2019-06-22 10:37 | NUR ---
Pt discharge to home. He packed and bagged all of personal belongings. Pt verbalizes understanding of all discharge instructions, medication schedules and wound care. Pt will follow up with Dr. Booker within 1 week for stitch removal. Pt was wheeled out and sister took him home.
== END 2019-06-22 10:31 | disposition home or self-care (01) | DRG 120 ==
LOC: EDSTATUS 11:00 → PAS IN 06-12 08:55 → EDSTATUS 06-12 14:15 → ICU 2S 06-12 14:30 → SUR 3N 06-13 15:47
PROVIDERS: ADMIT Surgery; ATTEND Surgery
PROC: 0BTF0ZZ Resection of Right Lower Lung Lobe, Open Approach (ICD-10-PCS; 2019-06-12)
PROC: 0B5N0ZZ Destruction of Right Pleura, Open Approach (ICD-10-PCS; 2019-06-12)
PROC: 0BJ08ZZ Inspection of Tracheobronchial Tree, Via Natural or Artificial Opening Endoscopic (ICD-10-PCS; 2019-06-12)
PROC: 0W9930Z Drainage of Right Pleural Cavity with Drainage Device, Percutaneous Approach (ICD-10-PCS; 2019-06-12)
PROC: 07T70ZZ Resection of Thorax Lymphatic, Open Approach (ICD-10-PCS; 2019-06-12)
PROC: 02HV33Z Insertion of Infusion Device into Superior Vena Cava, Percutaneous Approach (ICD-10-PCS; principal; 2019-06-14)
PROC: B548ZZA Ultrasonography of Superior Vena Cava, Guidance (ICD-10-PCS; 2019-06-14)
DX: C34.31 Malignant neoplasm of lower lobe, right bronchus or lung (principal); F17.200 Nicotine dependence, unspecified, uncomplicated; N20.0 Calculus of kidney; I10 Essential (primary) hypertension; I70.8 Atherosclerosis of other arteries; Z79.899 Other long term (current) drug therapy
CPT/HCPCS: 36415; 36600; 71045; 71046; 80048; 80053; 81001; 82803; 82948; 83735; 85018; 85025; 85610; 85730; 86885; 86900; 86901; 86920; 87070; 87077; 87081; 87186; 93005; 94010; 94640; 94667; 94760; 97116; 97161; 97530; A4215; A4618; A6258; A6449; A7000; A7048; C1758; C9250; G0378; J0131; J0690; J1100; J1200; J1885; J2001; J2175; J2250; J2270; J2310; J2405; J2704; J2710; J2765; J3010; J3480; J3490; J7040; J7060; J7120